=== PATIENT | male | born 1955 | race African-American/Black ===

== ENCOUNTER 2017-04-20 15:53 | Emergency (ER) | payer MEDICAID ==
[~2017-04-20] VITALS: Ht 177.8 cm; Wt 114.0 kg
[~2017-04-20 15:53] MED LIST: FURO80TA3; NORVASC; [UNRECOGNIZED DRUG - CODE]
[2017-04-20 16:03] VITALS: BP 121/82
== END 2017-04-20 21:15 | disposition left against medical advice (07) ==
LOC: ER 15:53
DX: M54.2 Cervicalgia (principal); Z53.21 Procedure and treatment not carried out due to patient leaving prior to being seen by health care provider

== ENCOUNTER 2017-04-21 02:21 | Emergency (ER) | payer MEDICAID ==
[~2017-04-21] VITALS: Ht 177.8 cm; Wt 112.0 kg
[2017-04-21 02:37] VITALS: BP 121/85
== END 2017-04-21 03:00 | disposition left against medical advice (07) ==
LOC: ER 02:21
DX: M54.2 Cervicalgia (principal); Z53.21 Procedure and treatment not carried out due to patient leaving prior to being seen by health care provider